=== PATIENT | male | born 1950 | race Caucasian/White ===

== ENCOUNTER 2017-06-17 23:52 | Inpatient (IN) | payer OTHER ==
--- NOTE | 2017-06-18 00:21 | EDM.PDOC ---
ED HPI GENERAL MEDICAL PROBLEM - General Stated Complaint: [facility] Time Seen by Provider: 06/18/17 00:07 Source of Information: Reports: EMS, Family History Limitations: Reports: Altered Mental Status - History of Present Illness INITIAL COMMENTS - FREE TEXT/NARRATIVE: 66-year-old male, [facility] has been living in very unhealthy conditions for the last 3 days. He was unable to walk earlier today but was at least able to communicate with his family and did eat some supper but over the past 4 or 5 hours slowly worsened and now has inability to speak, only partially responsive, more short of breath and somewhat agitated. They're sure he has gotten into alcohol over the past 3 days. A [employer] search was done and he has not been prescribed significant narcotics over the past 6 months. He arrived by ambulance with a face mask oxygen, slightly increased respiratory effort but O2 saturations near 100%. Glucometer check by EMS was over 100. No history was obtainable from the patient. Onset: Gradual (Markedly worse over the past 4 hours) - Related Data Allergies Allergy/AdvReac Type Severity Reaction Status Date / Time Penicillins Allergy Other Verified 06/18/17 00:23 Home Meds: Home Meds Acetaminophen 650 mg PO BID PRN 06/18/17 [History] Albuterol [Proventil Neb Soln] 2.5 mg NEB Q4H PRN neb 06/18/17 [Rx] Albuterol/Ipratropium [DuoNeb 3.0-0.5 MG/3 ML] 3 ml NEB QIDRT neb 06/18/17 [Rx] Ascorbic Acid 500 mg PO BID 06/18/17 [History] Baclofen 10 mg PO BID 06/18/17 [History] Enoxaparin [Lovenox] 40 mg SUBCUT BEDTIME syringe 06/18/17 [Rx] Ferrous Sulfate 325 mg PO BID 06/18/17 [History] Folic Acid 1 mg PO DAILY 06/18/17 [History] Gabapentin [Neurontin] 1,800 mg PO BEDTIME 06/18/17 [History] Gabapentin [Neurontin] 600 mg PO BID 06/18/17 [History] Lactobacillus Acidophilus [Digestive Probiotic] 1 each PO BID 06/18/17 [History] Levofloxacin/Dextrose 5%-Water [Levaquin in D5W 750 MG/150 ML] 750 mg IV Q24H bag 06/18/17 [Rx] Melatonin/Pyridoxine HCl (B6) [Melatonin 3 mg Tablet] 3 mg PO BEDTIME 06/18/17 [ History] Meropenem [Merrem] 1 gm IV Q8H sdv 06/18/17 [Rx] Norepinephrine [Levophed] 4 mg IV TITRATE sdv 06/18/17 [Rx] Pantoprazole Sodium [Protonix] 40 mg PO BIDAC 06/18/17 [History] Pantoprazole [ProTONIX IV] 40 mg IV Q12H vial 06/18/17 [Rx] QUEtiapine Fumarate [Quetiapine Fumarate] 25 mg PO BEDTIME 06/18/17 [History] Simvastatin [Zocor] 80 mg PO BEDTIME 06/18/17 [History] Thiamine Mononitrate [Vitamin B-1] 100 mg PO DAILY 06/18/17 [History] Vancomycin 1.1 gm IV Q12H sdv 06/18/17 [Rx] oxyCODONE 5 mg PO Q4H PRN 06/18/17 [History] ED ROS GENERAL - Review of Systems Review Of Systems: Unable To Obtain ED EXAM, GENERAL - Physical Exam Exam: See Below Exam Limited By: Respiratory Distress General Appearance: Lethargic, Other (Responded to voice and tactile stimulation but unable to speak) Eye Exam: Bilateral Eye: EOMI Head: Atraumatic Respiratory/Chest: Respiratory Distress, Decreased Breath Sounds (Diffuse decreased breath sounds, basilar rhonchi are present bilaterally) Cardiovascular: Regular Rate, Rhythm, Tachycardia GI/Abdominal: Normal Bowel Sounds Extremities: Pedal Edema (1+ symmetric lower extremity edema) Neurological: Inattentive, Confused, Slow to Respond Skin Exam: Warm, Dry Course - Vital Signs Last Recorded V/S: Last Vital Signs Temp 101.6 F H 06/18/17 10:47 Pulse 95 06/18/17 10:47 Resp 15 06/18/17 10:47 BP 114/49 L 06/18/17 10:47 Pulse Ox 95 06/18/17 10:47 - Orders/Labs/Meds Orders: Active Orders 24 hr Category Date Time Status Chest 1V Frontal [CR] Stat Exams 06/18/17 00:06 Taken Chest 1V Frontal [CR] Stat Exams 06/18/17 00:49 Taken Head wo Cont [CT] Stat Exams 06/18/17 00:06 Taken Labs: Laboratory Tests 06/18/17 06/18/17 06/18/17 Range/Units 00:15 00:15 00:30 WBC 11.5 H (4.5-11.0) K/uL RBC 3.50 L (4.30-5.90) M/uL Hgb 9.8 L (12.0-15.0) g/dL Hct 30.8 L (40.0-54.0) % MCV 88 (80-98) fL MCH 28 (27-31) pg MCHC 32 (32-36) % Plt Count 475 H (150-400) K/uL Neut % (Auto) 79 H (36-66) % Lymph % (Auto) 16 L (24-44) % [place] % (Auto) 5 (2-6) % Eos % (Auto) 0 L (2-4) % Baso % (Auto) 0 (0-1) % Sample Site R brachial POC ABG pH 7.15 L* (7.35-7.45) POC ABG pCO2 92.5 H* (35-45) mmHG POC ABG pO2 81 (80-105) mmHg POC ABG HCO3 32.3 H (22.0-26.0) mmol/L POC ABG Total CO2 35 H (23-27) mmol/L POC ABG O2 Sat 91 L (95-98) % POC ABG Base Excess 3 (-2-3) mmol/L O2 Delivery Device Nasal cannula POC O2 Flow Rate 2 Sodium 131 L (140-148) mmol/L Potassium 3.8 (3.6-5.2) mmol/L Chloride 93 L (100-108) mmol/L Carbon Dioxide 33 H (21-32) mmol/L Anion Gap 8.8 (5.0-14.0) mmol/L BUN 8 (7-18) mg/dL Creatinine 0.4 L (0.8-1.3) mg/dL Est Cr Clr Drug Dosing 167.58 mL/min Estimated GFR (MDRD) > 60 (>60) Glucose 111 H (74-106) mg/dL Calcium 7.7 L (8.5-10.1) mg/dL Total Bilirubin 0.3 (0.2-1.0) mg/dL AST 27 (15-37) U/L ALT 14 (12-78) U/L Alkaline Phosphatase 91 (46-116) U/L Ammonia (11-32) mmol/L Troponin I < 0.017 (0.000-0.056) ng/mL Total Protein 6.5 (6.4-8.2) g/dL Albumin 2.4 L (3.4-5.0) g/dL Globulin 4.1 H (2.3-3.5) g/dL Albumin/Globulin Ratio 0.6 L (1.2-2.2) Acetaminophen 0.0 L (10.0-30.0) ug/mL Ethyl Alcohol mg/dL 06/18/17 06/18/17 Range/Units 00:30 00:30 WBC (4.5-11.0) K/uL RBC (4.30-5.90) M/uL Hgb (12.0-15.0) g/dL Hct (40.0-54.0) % MCV (80-98) fL MCH (27-31) pg MCHC (32-36) % Plt Count (150-400) K/uL Neut % (Auto) (36-66) % Lymph % (Auto) (24-44) % [place] % (Auto) (2-6) % Eos % (Auto) (2-4) % Baso % (Auto) (0-1) % Sample Site POC ABG pH (7.35-7.45) POC ABG pCO2 (35-45) mmHG POC ABG pO2 (80-105) mmHg POC ABG HCO3 (22.0-26.0) mmol/L POC ABG Total CO2 (23-27) mmol/L POC ABG O2 Sat (95-98) % POC ABG Base Excess (-2-3) mmol/L O2 Delivery Device POC O2 Flow Rate Sodium (140-148) mmol/L Potassium (3.6-5.2) mmol/L Chloride (100-108) mmol/L Carbon Dioxide (21-32) mmol/L Anion Gap (5.0-14.0) mmol/L BUN (7-18) mg/dL Creatinine (0.8-1.3) mg/dL Est Cr Clr Drug Dosing mL/min Estimated GFR (MDRD) (>60) Glucose (74-106) mg/dL Calcium (8.5-10.1) mg/dL Total Bilirubin (0.2-1.0) mg/dL AST (15-37) U/L ALT (12-78) U/L Alkaline Phosphatase (46-116) U/L Ammonia 21 (11-32) mmol/L Troponin I (0.000-0.056) ng/mL Total Protein (6.4-8.2) g/dL Albumin (3.4-5.0) g/dL Globulin (2.3-3.5) g/dL Albumin/Globulin Ratio (1.2-2.2) Acetaminophen (10.0-30.0) ug/mL Ethyl Alcohol 195 mg/dL Meds: Medications Discontinued Medications Generic Name Dose Route Start Last Admin Trade Name Freq PRN Reason Stop Dose Admin Acetaminophen 650 mg 06/18/17 02:15 Tylenol RECTAL Q4H PRN Mild pain/fever Albuterol 2.5 mg 06/18/17 02:15 Proventil Neb Soln NEB Q4H PRN Shortness Of Breath/wheezing Albuterol/Ipratropium 3 ml 06/18/17 06:00 06/18/17 05:22 Duoneb 3.0-0.5 Mg/3 Ml NEB 3 ml QID AUTUMN Administration Albuterol/Ipratropium 3 ml 06/18/17 11:00 Duoneb 3.0-0.5 Mg/3 Ml NEB QIDRT AUTUMN Enoxaparin Sodium 40 mg 06/18/17 02:15 06/18/17 03:53 Lovenox SUBCUT 40 mg DAILY AUTUMN Administration Enoxaparin Sodium 40 mg 06/18/17 21:00 Lovenox SUBCUT BEDTIME AUTUMN Etomidate 40 mg 06/18/17 00:30 06/18/17 00:40 Amidate IV 06/18/17 00:31 20 mg ONETIME ONE Administration Heparin Sodium (Porcine) Confirm 06/18/17 09:21 06/18/17 10:24 Heparin Lock Flush 100 Units/Ml Administered 06/18/17 09:22 Not Given Dose 1,500 units .ROUTE .STK-MED ONE Heparin Sodium (Porcine) 300 units 06/18/17 09:54 06/18/17 10:15 Heparin Lock Flush 100 Units/Ml FLUSH 300 units ASDIRECTED PRN Administration central line Heparin Sodium (Porcine) 0 units 06/18/17 10:19 06/18/17 11:23 Heparin Lock Flush 100 Units/Ml FLUSH 300 units ASDIRECTED PRN Administration central line Hydromorphone HCl 0.5 mg 06/18/17 02:15 06/18/17 11:59 Dilaudid IVPUSH 0.5 mg Q2H PRN Administration Pain Propofol Confirm 06/18/17 01:08 Diprivan 100 Ml Administered 06/18/17 01:09 Dose 100 mls @ as directed .ROUTE .STK-MED ONE Lactated Ringer's 1,000 mls @ 500 mls/hr 06/18/17 02:15 06/18/17 02:00 Ringers, Lactated IV 06/18/17 05:16 500 mls/hr ASDIRECTED AUTUMN Administration Lactated Ringer's 1,000 mls @ 125 mls/hr 06/18/17 05:15 06/18/17 04:26 Ringers, Lactated IV 125 mls/hr ASDIRECTED AUTUMN Administration Levofloxacin/Dextrose 750 mg/ 150 mls @ 100 mls/hr 06/18/17 02:15 06/18/17 02 :37 Premix IV 100 mls/hr Q24H AUTUMN Administration Meropenem 1 gm/ Sodium 100 mls @ 200 mls/hr 06/18/17 02:15 06/18/17 04:27 Chloride IV 200 mls/hr Q8H AUTUMN Administration Propofol 100 mls @ 2.16 mls/hr 06/18/17 02:15 06/18/17 12:02 Diprivan 100 Ml IV 5.09 mcg/kg/min TITRATE AUTUMN 2.2 mls/hr Administration Protocol 5 MCG/KG/MIN Norepinephrine Bitartrate 4 mg 250 mls @ 7.5 mls/hr 06/18/17 04:45 06/18/17 08:30 / Dextrose/Water IV 5 mcg/min TITRATE AUTUMN 18.75 mls/hr Titration Protocol 2 MCG/MIN Dextrose/Water Confirm 06/18/17 04:41 06/18/17 05:21 Dextrose 5% In Water Administered 06/18/17 04:42 Not Given Dose 250 mls @ as directed .ROUTE .STK-MED ONE Meropenem 1 gm/ Sodium 100 mls @ 200 mls/hr 06/18/17 12:00 06/18/17 12:03 Chloride IV 200 mls/hr Q8H AUTUMN Administration Vancomycin HCl 1.5 gm/ Sodium 250 mls @ 167 mls/hr 06/18/17 08:00 06/18/17 07 :47 Chloride IV 06/18/17 09:29 167 mls/hr ONETIME ONE Administration Vancomycin HCl 1.1 gm/ Sodium 250 mls @ 167 mls/hr 06/18/17 20:00 Chloride IV Q12H AUTUMN Lactated Ringer's 500 mls @ 500 mls/hr 06/18/17 09:00 06/18/17 08:57 Ringers, Lactated IV 06/18/17 09:59 500 mls/hr .BOLUS ONE Administration Heparin Sodium (Porcine) 5,000 501 mls @ 5 mls/hr 06/18/17 09:30 06/18/17 09: 56 units/ Sodium Chloride IV 5 mls/hr ASDIRECTED AUTUMN Administration Magnesium Sulfate 2 gm/ Premix 50 mls @ 25 mls/hr 06/18/17 11:30 06/18/17 11: 22 IV 06/18/17 13:29 25 mls/hr ONETIME ONE Administration Lactated Ringer's 1,000 mls @ 999 mls/hr 06/18/17 11:00 06/18/17 10:52 Ringers, Lactated IV 06/18/17 12:00 999 mls/hr ONETIME ONE Administration Lidocaine HCl 5 ml 06/18/17 10:30 06/18/17 10:52 Xylocaine-Mpf 1% INJECT 06/18/17 10:31 5 ml ONETIME ONE Administration Midazolam HCl 5 mg 06/18/17 01:04 Versed 1 Mg/Ml IVPUSH 06/18/17 01:05 ONETIME ONE Midazolam HCl Confirm 06/18/17 01:06 Versed 1 Mg/Ml Administered 06/18/17 01:07 Dose 5 mg .ROUTE .STK-MED ONE Norepinephrine Bitartrate Confirm 06/18/17 04:40 06/18/17 05:20 Levophed Administered 06/18/17 04:41 Not Given Dose 4 mg .ROUTE .STK-MED ONE Ondansetron HCl 4 mg 06/18/17 02:15 Zofran IV Q4H PRN Nausea/Vomiting Pantoprazole Sodium 40 mg 06/18/17 02:15 06/18/17 02:39 Protonix Iv IV 40 mg Q12H AUTUMN Administration Sodium Chloride 10 ml 06/18/17 02:15 Saline Flush FLUSH ASDIRECTED PRN Keep Vein Open Succinylcholine Chloride 75 mg 06/18/17 00:30 06/18/17 00:40 Quelicin IV 06/18/17 00:31 75 mg ONETIME ONE Administration Succinylcholine Chloride Confirm 06/18/17 00:30 06/18/17 00:53 Quelicin Administered 06/18/17 00:31 Not Given Dose 200 mg .ROUTE .STK-MED ONE Vancomycin HCl 1 gm 06/18/17 03:00 Vancomycin IV .PHARMACY TO DOSE AUTUMN - Re-Assessments/Exams Free Text/Narrative Re-Assessment/Exam: 06/18/17 00:[address] was done which showed no acute findings, portable chest x-ray showed cardiomegaly and some mild vascular congestion. Blood gases confirmed hypercapnia with a CO2 of 92 and pH of 7.15. EtOH was 0.195. I discussed his condition with his family, he has needed intubation several times in the last few years and is a full code so the decision was made to intubate the patient. He was given 75 mg of succinylcholine after 20 mg of etomidate IV, and was intubated on the first attempt with a 7.0 ET tube under guidance with the glidescope. 06/18/17 00:58 Acetaminophen level was 0, hemoglobin 9.8. White count 11,400. 06/18/17 00:59 Troponin was 0. Sodium was 131, the rest of his electrolytes are actually quite reassuring, kidney function was excellent. Patient will be placed on a vent and placed in the ICU under hospitalist service. He will need treatment for acute COPD exacerbation and hypercapnia. 06/18/17 01:01 60 minutes of critical care was provided to the patient. 06/18/17 01:06 Prior to admission the patient started to become mildly agitated so was given 5 mg of IV Versed and orders for propofol drip were placed to initiate persistent sedation so the patient would tolerate mechanical ventilation. Departure - Departure Time of Disposition: 01:15 Disposition: Admitted As Inpatient 68 Clinical Impression: Hypercapnic respiratory failure COPD (chronic obstructive pulmonary disease) Qualifiers: COPD type: COPD with acute exacerbation Qualified Code(s): J44.1 - Chronic obstructive pulmonary disease with (acute) exacerbation - Discharge Information Critical Care Note - Critical Care Note Total Time (mins): 60 - My Orders Last 24 Hours: My Active Orders 06/18/17 00:06 Chest 1V Frontal [CR] Stat Head wo Cont [CT] Stat 06/18/17 00:49 Chest 1V Frontal [CR] Stat - Assessment/Plan Last 24 Hours: My Active Orders 06/18/17 00:06 Chest 1V Frontal [CR] Stat Head wo Cont [CT] Stat 06/18/17 00:49 Chest 1V Frontal [CR] Stat
[2017-06-18] MEDS ORDERED: Etomidate 2 MG/ML 20 ML SDV IV ONE (00:30)
[2017-06-18] MEDS ORDERED: Succinylcholine 200 MG/10 ML MDV IV ONE (00:30)
[2017-06-18] MEDS ORDERED: Succinylcholine 200 MG/10 ML MDV ONE (00:30)
[2017-06-18] MEDS ORDERED: Midazolam 1 MG/ML 5 ML SDV IVPUSH ONE (01:04)
[2017-06-18] MEDS ORDERED: Midazolam 1 MG/ML 5 ML SDV ONE (01:06)
[2017-06-18] MEDS ORDERED: Meropenem 1 GM in Sodium Chloride 0.9% 100 ML IV SCH ×2 (02:15→12:00)
[2017-06-18] MEDS ORDERED: Albuterol 0.083% 2.5 MG/3 ML Neb Soln NEB PRN (02:15)
[2017-06-18] MEDS ORDERED: Levofloxacin/Dextrose 5%-Water 750 MG in Premix Bag 1 BAG IV SCH (02:15)
[2017-06-18] MEDS ORDERED: Enoxaparin 40 MG/0.4 ML Syringe SUBCUT SCH ×2 (02:15→21:00)
[2017-06-18] MEDS ORDERED: Sodium Chloride 0.9% 10 ML Syringe FLUSH PRN (02:15)
[2017-06-18] MEDS ORDERED: HYDROmorphone 0.5 MG/0.5 ML Syringe IVPUSH PRN (02:15)
[2017-06-18] MEDS ORDERED: Lactated Ringers 1,000 ML IV SCH ×2 (02:15→05:15)
[2017-06-18] MEDS ORDERED: Acetaminophen 650 MG Supp RECTAL PRN (02:15)
[2017-06-18] MEDS ORDERED: Ondansetron 4 MG/2 ML SDV IV PRN (02:15)
[2017-06-18] MEDS ORDERED: Pantoprazole 40 MG Vial IV SCH (02:15)
--- NOTE | 2017-06-18 02:29 | PCM.HP ---
H&P History of Present Illness - General Date of Service: 06/18/17 Admit Problem/Dx: Source of Information: Provider, RN Notes Reviewed History Limitations: Reports: Altered Mental Status (Intubated and sedated), Respiratory Distress - History of Present Illness Initial Comments - Free Text/Narative: Mr. Wan is a 66-year-old gentleman who is admitted through the emergency department with acute on chronic hypercapnic respiratory failure requiring intubation and mechanical ventilation. Currently he was just discharged from the [place] hospital 3 days ago, to home. He has a long-standing history of alcohol abuse and apparently has been consuming alcohol over the past 3 days. Initially he did well after discharge but family noted that as the day progressed today he became progressively more lethargic and weak. Ambulance was called and he was brought into the emergency department for further evaluation and management. On arrival in the emergency department oxygen saturations were 100% on a mask, blood gases showed severe CO2 retention with a PCO2 of 93 and a pH of 7.15. He apparently has a past history of COPD and has experienced previous episodes of respiratory failure requiring intubation and mechanical ventilation. Alcohol level was elevated at 195, urine drug screen is pending. Since transfer to the intensive care unit he has been hypotensive with systolic pressures into the low 80s. Because of current intubation and sedation he is unable to provide history concerning recent symptoms or events. Family is no longer present and unable to provide information. We will attempt to obtain records from the [place] to determine reason for his recent hospitalization there. As well as more information concerning his past medical history. - Related Data Allergies/Adverse Reactions: Allergies Allergy/AdvReac Type Severity Reaction Status Date / Time Penicillins Allergy Other Verified 06/18/17 00:23 Home Medications: Home Meds Acetaminophen 650 mg PO BID PRN 06/18/17 [History] Ascorbic Acid 500 mg PO BID 06/18/17 [History] Baclofen 10 mg PO BID 06/18/17 [History] Ferrous Sulfate 325 mg PO BID 06/18/17 [History] Folic Acid 1 mg PO DAILY 06/18/17 [History] Gabapentin [Neurontin] 1,800 mg PO BEDTIME 06/18/17 [History] Gabapentin [Neurontin] 600 mg PO BID 06/18/17 [History] Lactobacillus Acidophilus [Digestive Probiotic] 1 each PO BID 06/18/17 [History] Melatonin/Pyridoxine HCl (B6) [Melatonin 3 mg Tablet] 3 mg PO BEDTIME 06/18/17 [ History] Pantoprazole Sodium [Protonix] 40 mg PO BIDAC 06/18/17 [History] QUEtiapine Fumarate [Quetiapine Fumarate] 25 mg PO BEDTIME 06/18/17 [History] Simvastatin [Zocor] 80 mg PO BEDTIME 06/18/17 [History] Thiamine Mononitrate [Vitamin B-1] 100 mg PO DAILY 06/18/17 [History] oxyCODONE 5 mg PO Q4H PRN 06/18/17 [History] Past Medical History Other HEENT History: Unable to obtain Cardiovascular History: Reports: Other (See Below) Other Cardiovascular History: Unable to obtain Respiratory History: Reports: Other (See Below) Other Respiratory History: Unable to obtain Gastrointestinal History: Reports: Other (See Below) Other Gastrointestinal History: History of C-Diff Genitourinary History: Reports: Other (See Below) Other Genitourinary History: Unable to obtain Musculoskeletal History: Reports: Other (See Below) Other Musculoskeletal History: Unable to obtain Psychiatric History: Reports: Addiction, Other (See Below) Other Psychiatric History: Chronic alchololic Endocrine/Metabolic History: Reports: Other (See Below) Other Endocrine/Metabolic History: Unable to obtain Hematologic History: Reports: Blood Transfusion(s), Other (See Below) Other Hematologic History: Recent 2018 GI Bleed with abdominal surgery Immunologic History: Reports: Other (See Below) Other Immunologic History: Unable to obtain Oncologic (Cancer) History: Reports: Other (See Below) Other Oncologic History: Unable to obtain Dermatologic History: Reports: Other (See Below) Other Dermatologic History: Unable to obtain - Infectious Disease History Infectious Disease History: Reports: Chicken Pox - Past Surgical History GI Surgical History: Reports: Other (See Below) Other GI Surgeries/Procedures: Recent abdominal surgery Male Surgical History: Reports: Circumcision Neurological Surgical History: Reports: Spinal Fusion, Other (See Below) Other Neurological Surgeries/Procedures: Recent 2018 C-2 through C-7 fusion Social & Family History - Family History Family Medical History: Unobtainable - Tobacco Use Smoking Status *Q: Current Every Day Smoker Years of Tobacco use: 50 Packs/Tins Daily: 2 Second Hand Smoke Exposure: Yes - Caffeine Use Caffeine Use: Reports: Coffee - Alcohol Use Days Per Week of Alcohol Use: 7 Number of Drinks Per Day: 6 Total Drinks Per Week: 42 - Recreational Drug Use Recreational Drug Use: No H&P Review of Systems - Review of Systems: Review Of Systems: Unable To Obtain General: Reports: ROS unobtainable (Intubated and sedated) Exam - Exam Exam: See Below - Vital Signs Vital Signs: Last Vital Signs Temp 96.8 F 06/18/17 01:02 Pulse 95 06/18/17 01:02 Resp 10 L 06/18/17 01:02 BP 109/63 06/18/17 01:02 Pulse Ox 100 06/18/17 01:02 Weight: 140 lb - Exam Quality Assessment: Supplemental Oxygen (Ventilator), Urinary Catheter, DVT Prophylaxis General: Sedated HEENT: Conjunctiva Clear, Normal Nasal Septum, Pupils Equal, Pupils Reactive Neck: Supple, Trachea Midline, +2 Carotid Pulse wo Bruit Lungs: Decreased Breath Sounds. No: Rales, Rhonchi, Rub, Wheezing Cardiovascular: Regular Rate, Regular Rhythm, Normal S1, Normal S2. No: Systolic Murmur, Diastolic Murmur GI/Abdominal Exam: Soft, Non-Tender, No Organomegaly, No Distention Back Exam: Normal Inspection, Other (Scars over the lumbar thoracic and cervical spine) Extremities: Non-Tender, Pedal Edema Skin: Warm, Dry, Intact - Patient Data Lab Results Last 24 hrs: Laboratory Results - last 24 hr 06/18/17 06/18/17 06/18/17 Range/Units 00:15 00:15 00:30 WBC 11.5 H (4.5-11.0) K/uL RBC 3.50 L (4.30-5.90) M/uL Hgb 9.8 L (12.0-15.0) g/dL Hct 30.8 L (40.0-54.0) % MCV 88 (80-98) fL MCH 28 (27-31) pg MCHC 32 (32-36) % Plt Count 475 H (150-400) K/uL Neut % (Auto) 79 H (36-66) % Lymph % (Auto) 16 L (24-44) % [place] % (Auto) 5 (2-6) % Eos % (Auto) 0 L (2-4) % Baso % (Auto) 0 (0-1) % Sample Site R brachial POC ABG pH 7.15 L* (7.35-7.45) POC ABG pCO2 92.5 H* (35-45) mmHG POC ABG pO2 81 (80-105) mmHg POC ABG HCO3 32.3 H (22.0-26.0) mmol/L POC ABG Total CO2 35 H (23-27) mmol/L POC ABG O2 Sat 91 L (95-98) % POC ABG Base Excess 3 (-2-3) mmol/L O2 Delivery Device Nasal cannula POC O2 Flow Rate 2 Sodium 131 L (140-148) mmol/L Potassium 3.8 (3.6-5.2) mmol/L Chloride 93 L (100-108) mmol/L Carbon Dioxide 33 H (21-32) mmol/L Anion Gap 8.8 (5.0-14.0) mmol/L BUN 8 (7-18) mg/dL Creatinine 0.4 L (0.8-1.3) mg/dL Est Cr Clr Drug Dosing 167.58 mL/min Estimated GFR (MDRD) > 60 (>60) Glucose 111 H (74-106) mg/dL Calcium 7.7 L (8.5-10.1) mg/dL Total Bilirubin 0.3 (0.2-1.0) mg/dL AST 27 (15-37) U/L ALT 14 (12-78) U/L Alkaline Phosphatase 91 (46-116) U/L Ammonia (11-32) mmol/L Troponin I < 0.017 (0.000-0.056) ng/mL Total Protein 6.5 (6.4-8.2) g/dL Albumin 2.4 L (3.4-5.0) g/dL Globulin 4.1 H (2.3-3.5) g/dL Albumin/Globulin Ratio 0.6 L (1.2-2.2) Acetaminophen 0.0 L (10.0-30.0) ug/mL Ethyl Alcohol mg/dL 06/18/17 06/18/17 Range/Units 00:30 00:30 WBC (4.5-11.0) K/uL RBC (4.30-5.90) M/uL Hgb (12.0-15.0) g/dL Hct (40.0-54.0) % MCV (80-98) fL MCH (27-31) pg MCHC (32-36) % Plt Count (150-400) K/uL Neut % (Auto) (36-66) % Lymph % (Auto) (24-44) % [place] % (Auto) (2-6) % Eos % (Auto) (2-4) % Baso % (Auto) (0-1) % Sample Site POC ABG pH (7.35-7.45) POC ABG pCO2 (35-45) mmHG POC ABG pO2 (80-105) mmHg POC ABG HCO3 (22.0-26.0) mmol/L POC ABG Total CO2 (23-27) mmol/L POC ABG O2 Sat (95-98) % POC ABG Base Excess (-2-3) mmol/L O2 Delivery Device POC O2 Flow Rate Sodium (140-148) mmol/L Potassium (3.6-5.2) mmol/L Chloride (100-108) mmol/L Carbon Dioxide (21-32) mmol/L Anion Gap (5.0-14.0) mmol/L BUN (7-18) mg/dL Creatinine (0.8-1.3) mg/dL Est Cr Clr Drug Dosing mL/min Estimated GFR (MDRD) (>60) Glucose (74-106) mg/dL Calcium (8.5-10.1) mg/dL Total Bilirubin (0.2-1.0) mg/dL AST (15-37) U/L ALT (12-78) U/L Alkaline Phosphatase (46-116) U/L Ammonia 21 (11-32) mmol/L Troponin I (0.000-0.056) ng/mL Total Protein (6.4-8.2) g/dL Albumin (3.4-5.0) g/dL Globulin (2.3-3.5) g/dL Albumin/Globulin Ratio (1.2-2.2) Acetaminophen (10.0-30.0) ug/mL Ethyl Alcohol 195 mg/dL Result Diagrams: 06/18/17 00:15 06/18/17 00:30 *Q Meaningful Use (ADM) - VTE Risk Assess *Q Each Risk Factor Represents 1 Point: Serious lung disease including pneumonia, Abnormal Pulmonary Function (COPD) Total Score 1 Point Risk Factors: 2 Each Risk Factor Represents 2 Points: Age 60 - 74 Years Total Score 2 Point Risk Factors: 2 Each Risk Factor Represents 3 Points: None Total Score 3 Point Risk Factors: 0 Each Risk Factor Represents 5 Points: None Total Score 5 Point Risk Factors: 0 Venous Thromboembolism Risk Factor Score *Q: 4 Problem List Initiated/Reviewed/Updated: Yes Orders Last 24hrs: Active Orders 24 hr Category Date Time Status Patient Status [ADT] Routine ADT 06/18/17 02:15 Active Cardiac Monitoring [RC] .As Directed Care 06/18/17 02:15 Active Communication Order [RC] ASDIRECTED Care 06/18/17 02:18 Active Height and Weight [RC] DAILY Care 06/18/17 02:15 Active Initiate Restraint Protocol [RC] BID Care 06/18/17 02:15 Active Intake and Output [RC] QSHIFT Care 06/18/17 02:15 Active Notify Provider Vital Signs [RC] ASDIRECTED Care 06/18/17 02:15 Active Oxygen Therapy [RC] PRN Care 06/18/17 02:15 Active Peripheral IV Care [RC] . DIRECTED Care 06/18/17 02:15 Active Pulse Oximetry [RC] CONTINUOUS Care 06/18/17 02:15 Active RT Aerosol Therapy [RC] ASDIRECTED Care 06/18/17 02:15 Active RT Ventilator, Adult [RC] ASDIRECTED Care 06/18/17 02:15 Active VTE/DVT Education [RC] Per Unit Routine Care 06/18/17 02:15 Active Vital Signs [RC] Q4H Care 06/18/17 02:15 Active Nothing per Oral Now Diet [DIET] Diet 06/18/17 Breakfast Active Chest 1V Frontal [CR] DAILY Exams 06/18/17 05:00 Ordered Chest 1V Frontal [CR] DAILY Exams 06/19/17 05:00 Ordered Chest 1V Frontal [CR] DAILY Exams 06/20/17 05:00 Ordered Chest 1V Frontal [CR] DAILY Exams 06/21/17 05:00 Ordered Chest 1V Frontal [CR] DAILY Exams 06/22/17 05:00 Ordered Chest 1V Frontal [CR] DAILY Exams 06/23/17 05:00 Ordered Chest 1V Frontal [CR] Stat Exams 06/18/17 00:06 Taken Chest 1V Frontal [CR] Stat Exams 06/18/17 00:49 Taken Head wo Cont [CT] Stat Exams 06/18/17 00:06 Taken BASIC METABOLIC PANEL,BMP [CHEM] AM Lab 06/18/17 05:11 Ordered BLOOD GAS ARTERIAL [BG] Stat Lab 06/18/17 02:15 Ordered BLOOD GAS ARTERIAL [BG] Stat Lab 06/18/17 07:00 Ordered CBC WITH AUTO DIFF [HEME] AM Lab 06/18/17 05:11 Ordered CLOSTRIDIUM DIFFICILE BY PCR [RM] Stat Lab 06/18/17 02:15 Ordered CULTURE BLOOD [BC] Stat Lab 06/18/17 02:15 Ordered CULTURE BLOOD [BC] Stat Lab 06/18/17 02:15 Ordered CULTURE RESPIRATORY + SMEAR [RM] Stat Lab 06/18/17 02:15 Ordered CULTURE URINE [RM] Stat Lab 06/18/17 02:15 Ordered DRUG SCREEN, URINE [URCHEM] Stat Lab 06/18/17 02:15 Ordered MAGNESIUM [CHEM] AM Lab 06/18/17 05:11 Ordered TROPONIN I [CHEM] AM Lab 06/18/17 05:11 Ordered UA W/MICROSCOPIC [URIN] Stat Lab 06/18/17 02:15 Ordered Acetaminophen [Tylenol] Med 06/18/17 02:15 Ordered 650 mg RECTAL Q4H PRN Albuterol [Proventil Neb Soln] Med 06/18/17 02:15 Ordered 2.5 mg NEB Q4H PRN Albuterol/Ipratropium [DuoNeb 3.0-0.5 MG/3 ML] Med 06/18/17 06:00 Ordered 3 ml NEB QID Enoxaparin [Lovenox] Med 06/18/17 02:15 Ordered 40 mg SUBCUT DAILY HYDROmorphone [Dilaudid] Med 06/18/17 02:15 Ordered 0.5 mg IVPUSH Q2H PRN Lactated Ringers @ 125 MLS/HR(1000ml) Med 06/18/17 05:15 Ordered Lactated Ringers [Ringers, Lactated] 1,000 ml IV ASDIRECTED Lactated Ringers [Ringers, Lactated] 1,000 ml Med 06/18/17 02:15 Ordered IV ASDIRECTED Levofloxacin/Dextrose 5%-Water [Levaquin in D5W 750 MG/ Med 06/18/17 02:15 Ordered 150 ML] 750 mg Premix Bag 1 bag IV Q24H Meropenem [Merrem] 1 gm Med 06/18/17 02:15 Ordered Sodium Chloride 0.9% [Normal Saline] 100 ml IV Q8H Ondansetron [Zofran] Med 06/18/17 02:15 Ordered 4 mg IV Q4H PRN Pantoprazole [ProTONIX IV] Med 06/18/17 02:15 Ordered 40 mg IV Q12H Propofol Drip @ 5 MCG/KG/MIN(100ml) Med 06/18/17 02:15 Ordered Propofol [Diprivan 100 ML] 100 ml IV TITRATE Sodium Chloride 0.9% [Saline Flush] Med 06/18/17 02:15 Ordered 10 ml FLUSH ASDIRECTED PRN Vancomycin Med 06/18/17 03:00 Ordered 1 gm IV .PHARMACY TO DOSE Blood Culture x2 Reflex Set [OM.PC] Stat Ot 06/18/17 02:15 Ordered Desired Level of Sedation (RASS) [AST] Click to Edit Ot 06/18/17 02:15 Ordered Peripheral IV Insertion Adult [OM.PC] Routine Ot 06/18/17 02:15 Ordered Restraint Initiate Non-VIOL/Non-SD [OM.PC] Urgent Ot 06/18/17 02:15 Ordered Restraint Monitoring Non-VIOL/Non-SD [OM.PC] Daily Ot 06/18/17 02:15 Ordered Restraint Monitoring Non-VIOL/Non-SD [OM.PC] Daily Ot 06/19/17 02:15 Ordered Resuscitation Status Routine Resus Stat 06/18/17 01:56 Ordered Medication Orders Acetaminophen (Tylenol) 650 mg RECTAL Q4H PRN PRN Reason: Mild pain/fever Albuterol (Proventil Neb Soln) 2.5 mg NEB Q4H PRN PRN Reason: Shortness Of Breath/wheezing Albuterol/Ipratropium (Duoneb 3.0-0.5 Mg/3 Ml) 3 ml NEB QID AUTUMN Enoxaparin Sodium (Lovenox) 40 mg SUBCUT DAILY AUTUMN Hydromorphone HCl (Dilaudid) 0.5 mg IVPUSH Q2H PRN PRN Reason: Pain Lactated Ringer's (Ringers, Lactated) 1,000 mls @ 500 mls/hr IV ASDIRECTED AUTUMN Stop: 06/18/17 05:16 Lactated Ringer's (Ringers, Lactated) 1,000 mls @ 125 mls/hr IV ASDIRECTED AUTUMN Levofloxacin/Dextrose 750 mg/ (Premix) 150 mls @ 100 mls/hr IV Q24H AUTUMN Meropenem 1 gm/ Sodium (Chloride) 100 mls @ 200 mls/hr IV Q8H AUTUMN Propofol (Diprivan 100 Ml) 100 mls @ 1.905 mls/hr IV TITRATE AUTUMN; Protocol Ondansetron HCl (Zofran) 4 mg IV Q4H PRN PRN Reason: Nausea/Vomiting Pantoprazole Sodium (Protonix Iv) 40 mg IV Q12H AUTUMN Sodium Chloride (Saline Flush) 10 ml FLUSH ASDIRECTED PRN PRN Reason: Keep Vein Open Vancomycin HCl (Vancomycin) 1 gm IV .PHARMACY TO DOSE AUTUMN Assessment/Plan Comment:: ASSESSMENT AND PLAN ACUTE ON CHRONIC HYPERCAPNIC RESPIRATORY FAILURE-history of underlying COPD, no evidence of obvious infiltrate identified on chest x-ray. Possible component of pulmonary edema. Possibly related to alcohol use, possible narcotic use, urine drug screen pending -Urine drug screen -Follow-up chest x-ray in a.m. after hydration -Arterial blood gases now and in a.m. -Daily chest x-ray while intubated -Continue current ventilator settings, pending blood gases -Blood and sputum and urine cultures pending -IV vancomycin, meropenem, and levofloxacin pending culture results -Obtain records from the [place] hospital concerning recent hospitalization and past medical history HYPOTENSION-noted after intubation, possible medication effect versus developing sepsis secondary to infection. No evidence of cardiac involvement, EKG shows no significant ST segment changes and initial troponin level is within normal range -Serial troponin level -Aggressive IV fluid replacement per sepsis protocol -Antibiotics as above, pending culture results ALCOHOL INTOXICATION-by history is only been using online marketing strategist over the past 3 days , not likely to experience alcohol withdrawal MAINTENANCE ISSUES -DVT prophylaxis;Lovenox 40 mg subcutaneous daily -GI prophylaxis;Protonix 40 mg IV every 12 hours -Hines catheter;To monitor urine output -Nutrition;Nothing by mouth -Nicotine dependence;Not required CODE STATUS-FULL CODE ADMISSION STATUS-patient will be admitted to inpatient status, expect at least a 2 night hospital stay for evaluation and management of problems as outlined above. At the time of this admission I do not reasonably expected evaluation and management of this problem will require more than a 96 hour hospital stay. DISPOSITION-anticipate discharge to home after the hospital stay. PRIMARY CARE PROVIDER-[facility]
[2017-06-18] MEDS ORDERED: Vancomycin 1 GM SDV IV SCH (03:00)
[2017-06-18] MEDS ORDERED: Norepinephrine 4 MG/4 ML SDV ONE (04:40)
[2017-06-18] MEDS ORDERED: Dextrose 5% in Water 250 ML ONE (04:41)
[2017-06-18] MEDS ORDERED: Norepinephrine 4 MG in Dextrose 5% in Water 246 ML IV SCH ×2 (04:45)
[2017-06-18] MEDS ORDERED: Iopamidol 612 MG/ML 150 ML Bottle IV PRN (05:18)
[2017-06-18] MEDS ORDERED: Albuterol/Ipratropium 3.0-0.5 MG/3 ML Neb Soln NEB SCH ×2 (06:00→11:00)
[2017-06-18] MEDS ORDERED: Lactated Ringers 500 ML IV ONE ×2 (09:00→10:30)
[2017-06-18] MEDS ORDERED: Heparin Sodium 5,000 UNITS in Sodium Chloride 0.9% 500 ML IV SCH (09:30)
[2017-06-18] MEDS ORDERED: Lidocaine 1% 20 ML MDV INJECT ONE (09:53)
--- NOTE | 2017-06-18 10:22 | OR ---
DATE OF PROCEDURE: 06/18/2017 PROCEDURE PERFORMED: Left subclavian vein central line placement. COMPLICATIONS: None. EARTH SCIENCE FACULTY MEMBER: None. ANESTHESIA: MAC. RISKS: Due to the emergency nature of this procedure, the patient was unable to consent with respect to this. However, standard risks were applied such as infection, bleeding, and pneumothorax. At this time, the benefits greatly outweigh the risks of this emergent procedure. Therefore, it was deemed appropriate for the patient to immediately proceed. PROCEDURE IN DETAIL: The patient was placed in supine position. The left chest was prepped and draped. The surgeon wore gown, gloves, and masks. This was then prepped and draped in standard fashion using the . The left subclavian vein was accessed on the first pass. Immediately a dark blood was noted. A 35,000th wire was then threaded into the left subclavian vein. This had already been anesthetized with lidocaine 1% from the kit. The dilator was then used. The subclavian line was then introduced and the wire was removed. This was then sutured into place x2. The dressings were applied. The patient tolerated the procedure well. PREOPERATIVE DIAGNOSIS: Hypotension. POSTOPERATIVE DIAGNOSIS: Hypotension. Gino Huff MD /[id number]
--- NOTE | 2017-06-18 10:30 | ANES ---
DATE OF SERVICE: 06/18/2017 INDICATION: Lupe is a 66-year-old male, patient of Dr. Luisito Calle, #[id number]. Mr. Wan is in our intensive care unit and was admitted through the emergency room last night in acute respiratory failure. I was requested today to assess the patient for A-line placement. DESCRIPTION OF PROCEDURE: I attempted right radial arterial access after a sterile drape and prep. I was able to localize the right radius. I cannulated with a 20-gauge arterial catheter but was unable to thread the catheter. I aborted at that point, repositioned, and localized the right ulnar artery. I was able to cannulate and thread the catheter. Excellent blood flow. The catheter was then secured with stitch and Tegaderm and had excellent waveform, reported off to the nurse taking care of the patient. The patient tolerated the procedure quite well. Luisito Camacho CRNA /[id number]
--- NOTE | 2017-06-18 10:56 | PCM.DCSUM1 ---
Discharge Summary - Hospital Course Brief History: This patient is a 66-year-old gentleman who was admitted through the emergency department with weakness and lethargy secondary to hypercapnic respiratory failure and septic shock. - Discharge Data Discharge Date: 06/18/17 Discharge Disposition: DC/Tfer to Acute Hospital 02 Condition: Serious - Discharge Diagnosis/Problem(s) (1) Hypercapnic respiratory failure SNOMED Code(s): 962784642 ICD Code: J96.92 - RESPIRATORY FAILURE, UNSPECIFIED WITH HYPERCAPNIA Status : Acute Current Visit: Yes (2) Septic shock SNOMED Code(s): 48228318 ICD Code: A41.9 - SEPSIS, UNSPECIFIED ORGANISM; R65.21 - SEVERE SEPSIS WITH SEPTIC SHOCK Status: Acute Current Visit: Yes (3) COPD (chronic obstructive pulmonary disease) SNOMED Code(s): 95183109 ICD Code: J44.9 - CHRONIC OBSTRUCTIVE PULMONARY DISEASE, UNSPECIFIED Status : Acute Current Visit: Yes - Patient Summary/Data Hospital Course: Mr. Wan is a 66-year-old gentleman who was admitted through the emergency department with acute on chronic hypercapnic respiratory failure requiring intubation and mechanical ventilation. He was just discharged from the [facility] 3 days ago. He initially had been hospitalized at [facility] in [facility] with an upper GI bleed. This was a severe bleed requiring prolonged hospitalization and transfusion of 13 units of red blood cells. Initially attempt was made at thrombosis of the bleeding artery which was apparently unsuccessful and he required surgery with oversewing of the ulcer. During hospitalization he experienced 2 episodes of respiratory failure requiring intubation and mechanical ventilation. He was transferred from [place] to the [facility] in [place] for rehabilitation. He also has a long- standing history of spinal disease, he had apparently developed severe cervical spine disease with tetraplegia. Cervical spine surgery was performed last fall at the OR in [place], he was hospitalized for prolonged rehabilitation and functional status improved significantly. He has a long-standing history of alcohol abuse and apparently has been consuming alcohol over the past 3 days. Initially he did well after discharge but family noted on the day of admission that he became progressively more lethargic and weak. Ambulance was called and he was brought into the emergency department for further evaluation and management. On arrival in the emergency department oxygen saturations were 100% on a mask, blood gases showed severe CO2 retention with a PCO2 of 93 and a pH of 7.15. He apparently has a past history of COPD and has experienced previous episodes of respiratory failure requiring intubation and mechanical ventilation. Alcohol level was elevated at 195, urine drug screen shows only presence of oxycodone, which he received on discharge from the OR. After transfer to the intensive care unit became hypotensive with systolic pressures into the low 80s. There was no significant temperature elevation at that time, white blood cell count at the time of admission was only modestly elevated 11,300. Was felt likely that he was developing sepsis, he was given aggressive IV fluid replacement per sepsis protocol. Blood urine and sputum cultures were obtained and he was started on broad-spectrum IV antibiotic therapy with vancomycin, meropenem, and levofloxacin. Despite aggressive IV fluid replacement pressures remained low and he was started on IV norepinephrine. This did result in good improvement of pressures and at the time of transfer he had a mean arterial pressure of 70. Left subclavian central line was placed by Dr. Huff and an arterial line was also started. Urine output remained very good despite episodes of hypotension. He ventilated easily with reversal of his severe hypocapnia. Because of multiple medical problems and severe acute illness he will be transferred to [facility] in [facility] via helicopter. Transfer of care has been accepted by Dr. Vivas. - Patient Instructions Diet: NPO Activity: Bedrest Other/Special Instructions: Patient will be transfered to [facility], in [facility] via helicopter - Discharge Plan Home Medications: Home Meds Acetaminophen 650 mg PO BID PRN 06/18/17 [History] Albuterol [Proventil Neb Soln] 2.5 mg NEB Q4H PRN [facility] 06/18/17 [Rx] Albuterol/Ipratropium [DuoNeb 3.0-0.5 MG/3 ML] 3 ml NEB QIDRT [facility] 06/18/17 [Rx] Ascorbic Acid 500 mg PO BID 06/18/17 [History] Baclofen 10 mg PO BID 06/18/17 [History] Enoxaparin [Lovenox] 40 mg SUBCUT BEDTIME syringe 06/18/17 [Rx] Ferrous Sulfate 325 mg PO BID 06/18/17 [History] Folic Acid 1 mg PO DAILY 06/18/17 [History] Gabapentin [Neurontin] 1,800 mg PO BEDTIME 06/18/17 [History] Gabapentin [Neurontin] 600 mg PO BID 06/18/17 [History] Lactobacillus Acidophilus [Digestive Probiotic] 1 each PO BID 06/18/17 [History] Levofloxacin/Dextrose 5%-Water [Levaquin in D5W 750 MG/150 ML] 750 mg IV Q24H bag 06/18/17 [Rx] Melatonin/Pyridoxine HCl (B6) [Melatonin 3 mg Tablet] 3 mg PO BEDTIME 06/18/17 [ History] Meropenem [Merrem] 1 gm IV Q8H sdv 06/18/17 [Rx] Norepinephrine [Levophed] 4 mg IV TITRATE sdv 06/18/17 [Rx] Pantoprazole Sodium [Protonix] 40 mg PO BIDAC 06/18/17 [History] Pantoprazole [ProTONIX IV] 40 mg IV Q12H vial 06/18/17 [Rx] QUEtiapine Fumarate [Quetiapine Fumarate] 25 mg PO BEDTIME 06/18/17 [History] Simvastatin [Zocor] 80 mg PO BEDTIME 06/18/17 [History] Thiamine Mononitrate [Vitamin B-1] 100 mg PO DAILY 06/18/17 [History] Vancomycin 1.1 gm IV Q12H sdv 06/18/17 [Rx] oxyCODONE 5 mg PO Q4H PRN 06/18/17 [History] Referrals: Vikas Millan PA [Primary Care Provider] - - Discharge Summary/Plan Comment DC Time >30 min.: Yes (60 min.) - Patient Data Vitals - Most Recent: Last Vital Signs Temp 101.6 F H 06/18/17 10:47 Pulse 95 06/18/17 10:47 Resp 15 06/18/17 10:47 BP 114/49 L 06/18/17 10:47 Pulse Ox 95 06/18/17 10:47 Weight - Most Recent: 158 lb 11.725 oz I&O - Last 24 hours: Intake & Output 06/17/17 06/18/17 06/18/17 22:59 06:59 14:59 Intake Total 1633 1194 Output Total 200 2870 Balance 1433 -1676 Lab Results - Last 24 hrs: Laboratory Results - last 24 hr 06/18/17 06/18/17 06/18/17 Range/Units 00:15 00:15 00:30 WBC 11.5 H (4.5-11.0) K/uL RBC 3.50 L (4.30-5.90) M/uL Hgb 9.8 L (12.0-15.0) g/dL Hct 30.8 L (40.0-54.0) % MCV 88 (80-98) fL MCH 28 (27-31) pg MCHC 32 (32-36) % Plt Count 475 H (150-400) K/uL Neut % (Auto) 79 H (36-66) % Lymph % (Auto) 16 L (24-44) % [place] % (Auto) 5 (2-6) % Eos % (Auto) 0 L (2-4) % Baso % (Auto) 0 (0-1) % Sample Site R brachial Puncture Site POC ABG pH 7.15 L* (7.35-7.45) ABG pH (7.350-7.450) POC ABG pCO2 92.5 H* (35-45) mmHG ABG pCO2 (35.0-42.0) mmHg POC ABG pO2 81 (80-105) mmHg ABG pO2 (75.0-100.0) mmHg POC ABG HCO3 32.3 H (22.0-26.0) mmol/L ABG HCO3 (22.0-26.0) mmol/L POC ABG Total CO2 35 H (23-27) mmol/L ABG Total CO2 (23.0-27.0) mmol/L POC ABG O2 Sat 91 L (95-98) % ABG O2 Saturation (95.0-98.0) % ABG O2 Content (15.0-23.0) %vol POC ABG Base Excess 3 (-2-3) mmol/L ABG Base Excess mm/L ABG Hemoglobin (13.5-18.0) g/dL ABG Oxyhemoglobin % ABG Carboxyhemoglobin (0.0-1.6) % ABG Methemoglobin % Gregg Test O2 Delivery Device Nasal cannula Oxygen Flow Rate L POC O2 Flow Rate 2 Sodium 131 L (140-148) mmol/L Potassium 3.8 (3.6-5.2) mmol/L Chloride 93 L (100-108) mmol/L Carbon Dioxide 33 H (21-32) mmol/L Anion Gap 8.8 (5.0-14.0) mmol/L BUN 8 (7-18) mg/dL Creatinine 0.4 L (0.8-1.3) mg/dL Est Cr Clr Drug Dosing 167.58 mL/min Estimated GFR (MDRD) > 60 (>60) Glucose 111 H (74-106) mg/dL Lactic Acid (0.4-2.0) mmol/L Calcium 7.7 L (8.5-10.1) mg/dL Magnesium (1.8-2.4) mg/dL Total Bilirubin 0.3 (0.2-1.0) mg/dL AST 27 (15-37) U/L ALT 14 (12-78) U/L Alkaline Phosphatase 91 (46-116) U/L Ammonia (11-32) mmol/L Troponin I < 0.017 (0.000-0.056) ng/mL Total Protein 6.5 (6.4-8.2) g/dL Albumin 2.4 L (3.4-5.0) g/dL Globulin 4.1 H (2.3-3.5) g/dL Albumin/Globulin Ratio 0.6 L (1.2-2.2) Urine Color Urine Appearance Urine pH (4.5-8.0) Ur Specific [place] (1.008-1.030) Urine Protein (NEGATIVE) mg/dL Urine Glucose (UA) (NEGATIVE) mg/dL Urine Ketones (NEGATIVE) mg/dL Urine Occult Blood (NEGATIVE) Urine Nitrite (NEGAITVE) Urine Bilirubin (NEGATIVE) Urine Urobilinogen (NORMAL) mg/dL Ur Leukocyte Esterase (NEGATIVE) Urine RBC (0-5) Urine WBC (0-5) Ur Epithelial Cells Amorphous Sediment Urine Bacteria Urine Mucus Urine Opiates Screen (NEGATIVE) Ur Oxycodone Screen (NEGATIVE) Urine Methadone Screen (NEGATIVE) Ur Propoxyphene Screen (NEGATIVE) Acetaminophen 0.0 L (10.0-30.0) ug/mL Ur Barbiturates Screen (NEGATIVE) Ur Tricyclics Screen (NEGATIVE) Ur Phencyclidine Scrn (NEGATIVE) Ur Amphetamine Screen (NEGATIVE) U Methamphetamines Scrn (NEGATIVE) Urine MDMA Screen (NEGATIVE) U Benzodiazepines Scrn (NEGATIVE) U Cocaine Metab Screen (NEGATIVE) U Marijuana (THC) Screen (NEGATIVE) Ethyl Alcohol mg/dL 06/18/17 06/18/17 06/18/17 Range/Units 00:30 00:30 02:15 WBC (4.5-11.0) K/uL RBC (4.30-5.90) M/uL Hgb (12.0-15.0) g/dL Hct (40.0-54.0) % MCV (80-98) fL MCH (27-31) pg MCHC (32-36) % Plt Count (150-400) K/uL Neut % (Auto) (36-66) % Lymph % (Auto) (24-44) % [place] % (Auto) (2-6) % Eos % (Auto) (2-4) % Baso % (Auto) (0-1) % Sample Site Puncture Site POC ABG pH (7.35-7.45) ABG pH (7.350-7.450) POC ABG pCO2 (35-45) mmHG ABG pCO2 (35.0-42.0) mmHg POC ABG pO2 (80-105) mmHg ABG pO2 (75.0-100.0) mmHg POC ABG HCO3 (22.0-26.0) mmol/L ABG HCO3 (22.0-26.0) mmol/L POC ABG Total CO2 (23-27) mmol/L ABG Total CO2 (23.0-27.0) mmol/L POC ABG O2 Sat (95-98) % ABG O2 Saturation (95.0-98.0) % ABG O2 Content (15.0-23.0) %vol POC ABG Base Excess (-2-3) mmol/L ABG Base Excess mm/L ABG Hemoglobin (13.5-18.0) g/dL ABG Oxyhemoglobin % ABG Carboxyhemoglobin (0.0-1.6) % ABG Methemoglobin % Gregg Test O2 Delivery Device Oxygen Flow Rate L POC O2 Flow Rate Sodium (140-148) mmol/L Potassium (3.6-5.2) mmol/L Chloride (100-108) mmol/L Carbon Dioxide (21-32) mmol/L Anion Gap (5.0-14.0) mmol/L BUN (7-18) mg/dL Creatinine (0.8-1.3) mg/dL Est Cr Clr Drug Dosing mL/min Estimated GFR (MDRD) (>60) Glucose (74-106) mg/dL Lactic Acid (0.4-2.0) mmol/L Calcium (8.5-10.1) mg/dL Magnesium (1.8-2.4) mg/dL Total Bilirubin (0.2-1.0) mg/dL AST (15-37) U/L ALT (12-78) U/L Alkaline Phosphatase (46-116) U/L Ammonia 21 (11-32) mmol/L Troponin I (0.000-0.056) ng/mL Total Protein (6.4-8.2) g/dL Albumin (3.4-5.0) g/dL Globulin (2.3-3.5) g/dL Albumin/Globulin Ratio (1.2-2.2) Urine Color Yellow Urine Appearance Clear Urine pH 5.0 (4.5-8.0) Ur Specific [place] 1.025 (1.008-1.030) Urine Protein Negative (NEGATIVE) mg/dL Urine Glucose (UA) Normal (NEGATIVE) mg/dL Urine Ketones Negative (NEGATIVE) mg/dL Urine Occult Blood Negative (NEGATIVE) Urine Nitrite Negative (NEGAITVE) Urine Bilirubin Negative (NEGATIVE) Urine Urobilinogen Normal (NORMAL) mg/dL Ur Leukocyte Esterase Negative (NEGATIVE) Urine RBC 0-5 (0-5) Urine WBC 0-5 (0-5) Ur Epithelial Cells Few Amorphous Sediment Not seen Urine Bacteria Few Urine Mucus Not seen Urine Opiates Screen (NEGATIVE) Ur Oxycodone Screen (NEGATIVE) Urine Methadone Screen (NEGATIVE) Ur Propoxyphene Screen (NEGATIVE) Acetaminophen (10.0-30.0) ug/mL Ur Barbiturates Screen (NEGATIVE) Ur Tricyclics Screen (NEGATIVE) Ur Phencyclidine Scrn (NEGATIVE) Ur Amphetamine Screen (NEGATIVE) U Methamphetamines Scrn (NEGATIVE) Urine MDMA Screen (NEGATIVE) U Benzodiazepines Scrn (NEGATIVE) U Cocaine Metab Screen (NEGATIVE) U Marijuana (THC) Screen (NEGATIVE) Ethyl Alcohol 195 mg/dL 06/18/17 06/18/17 06/18/17 Range/Units 02:15 02:15 06:56 WBC (4.5-11.0) K/uL RBC (4.30-5.90) M/uL Hgb (12.0-15.0) g/dL Hct (40.0-54.0) % MCV (80-98) fL MCH (27-31) pg MCHC (32-36) % Plt Count (150-400) K/uL Neut % (Auto) (36-66) % Lymph % (Auto) (24-44) % [place] % (Auto) (2-6) % Eos % (Auto) (2-4) % Baso % (Auto) (0-1) % Sample Site Puncture Site R radial Rt brachial POC ABG pH (7.35-7.45) ABG pH 7.285 L 7.351 (7.350-7.450) POC ABG pCO2 (35-45) mmHG ABG pCO2 62.5 H 48.2 H (35.0-42.0) mmHg POC ABG pO2 (80-105) mmHg ABG pO2 59.9 L 147.0 H (75.0-100.0) mmHg POC ABG HCO3 (22.0-26.0) mmol/L ABG HCO3 28.7 H 26.0 (22.0-26.0) mmol/L POC ABG Total CO2 (23-27) mmol/L ABG Total CO2 27.9 H 24.8 (23.0-27.0) mmol/L POC ABG O2 Sat (95-98) % ABG O2 Saturation 86.9 L 99.2 H (95.0-98.0) % ABG O2 Content 10.2 L 11.6 L (15.0-23.0) %vol POC ABG Base Excess (-2-3) mmol/L ABG Base Excess 1.9 0.7 mm/L ABG Hemoglobin 8.7 L 8.5 L (13.5-18.0) g/dL ABG Oxyhemoglobin 83.7 94.3 % ABG Carboxyhemoglobin 2.9 H 4.1 H (0.0-1.6) % ABG Methemoglobin 0.8 0.8 % Gregg Test Ok N/a O2 Delivery Device Ventilator Ventilator Oxygen Flow Rate L POC O2 Flow Rate Sodium (140-148) mmol/L Potassium (3.6-5.2) mmol/L Chloride (100-108) mmol/L Carbon Dioxide (21-32) mmol/L Anion Gap (5.0-14.0) mmol/L BUN (7-18) mg/dL Creatinine (0.8-1.3) mg/dL Est Cr Clr Drug Dosing mL/min Estimated GFR (MDRD) (>60) Glucose (74-106) mg/dL Lactic Acid (0.4-2.0) mmol/L Calcium (8.5-10.1) mg/dL Magnesium (1.8-2.4) mg/dL Total Bilirubin (0.2-1.0) mg/dL AST (15-37) U/L ALT (12-78) U/L Alkaline Phosphatase (46-116) U/L Ammonia (11-32) mmol/L Troponin I (0.000-0.056) ng/mL Total Protein (6.4-8.2) g/dL Albumin (3.4-5.0) g/dL Globulin (2.3-3.5) g/dL Albumin/Globulin Ratio (1.2-2.2) Urine Color Urine Appearance Urine pH (4.5-8.0) Ur Specific [place] (1.008-1.030) Urine Protein (NEGATIVE) mg/dL Urine Glucose (UA) (NEGATIVE) mg/dL Urine Ketones (NEGATIVE) mg/dL Urine Occult Blood (NEGATIVE) Urine Nitrite (NEGAITVE) Urine Bilirubin (NEGATIVE) Urine Urobilinogen (NORMAL) mg/dL Ur Leukocyte Esterase (NEGATIVE) Urine RBC (0-5) Urine WBC (0-5) Ur Epithelial Cells Amorphous Sediment Urine Bacteria Urine Mucus Urine Opiates Screen Negative (NEGATIVE) Ur Oxycodone Screen Positive H (NEGATIVE) Urine Methadone Screen Negative (NEGATIVE) Ur Propoxyphene Screen Negative (NEGATIVE) Acetaminophen (10.0-30.0) ug/mL Ur Barbiturates Screen Negative (NEGATIVE) Ur Tricyclics Screen Negative (NEGATIVE) Ur Phencyclidine Scrn Negative (NEGATIVE) Ur Amphetamine Screen Negative (NEGATIVE) U Methamphetamines Scrn Negative (NEGATIVE) Urine MDMA Screen Negative (NEGATIVE) U Benzodiazepines Scrn Negative (NEGATIVE) U Cocaine Metab Screen Negative (NEGATIVE) U Marijuana (THC) Screen Negative (NEGATIVE) Ethyl Alcohol mg/dL 06/18/17 06/18/17 06/18/17 Range/Units 06:56 06:56 10:26 WBC 8.6 (4.5-11.0) K/uL RBC 3.02 L (4.30-5.90) M/uL Hgb 8.3 L (12.0-15.0) g/dL Hct 26.7 L (40.0-54.0) % MCV 88 (80-98) fL MCH 28 (27-31) pg MCHC 31 L (32-36) % Plt Count 419 H (150-400) K/uL Neut % (Auto) 73 H (36-66) % Lymph % (Auto) 17 L (24-44) % [place] % (Auto) 9 H (2-6) % Eos % (Auto) 0 L (2-4) % Baso % (Auto) 0 (0-1) % Sample Site Puncture Site POC ABG pH (7.35-7.45) ABG pH (7.350-7.450) POC ABG pCO2 (35-45) mmHG ABG pCO2 (35.0-42.0) mmHg POC ABG pO2 (80-105) mmHg ABG pO2 (75.0-100.0) mmHg POC ABG HCO3 (22.0-26.0) mmol/L ABG HCO3 (22.0-26.0) mmol/L POC ABG Total CO2 (23-27) mmol/L ABG Total CO2 (23.0-27.0) mmol/L POC ABG O2 Sat (95-98) % ABG O2 Saturation (95.0-98.0) % ABG O2 Content (15.0-23.0) %vol POC ABG Base Excess (-2-3) mmol/L ABG Base Excess mm/L ABG Hemoglobin (13.5-18.0) g/dL ABG Oxyhemoglobin % ABG Carboxyhemoglobin (0.0-1.6) % ABG Methemoglobin % Gregg Test O2 Delivery Device Oxygen Flow Rate L POC O2 Flow Rate Sodium 135 L (140-148) mmol/L Potassium 3.9 (3.6-5.2) mmol/L Chloride 100 (100-108) mmol/L Carbon Dioxide 29 (21-32) mmol/L Anion Gap 9.9 (5.0-14.0) mmol/L BUN 6 L (7-18) mg/dL Creatinine 0.5 L (0.8-1.3) mg/dL Est Cr Clr Drug Dosing 152.00 mL/min Estimated GFR (MDRD) > 60 (>60) Glucose 76 (74-106) mg/dL Lactic Acid 1.8 (0.4-2.0) mmol/L Calcium 8.0 L (8.5-10.1) mg/dL Magnesium 1.7 L (1.8-2.4) mg/dL Total Bilirubin (0.2-1.0) mg/dL AST (15-37) U/L ALT (12-78) U/L Alkaline Phosphatase (46-116) U/L Ammonia (11-32) mmol/L Troponin I 0.027 (0.000-0.056) ng/mL Total Protein (6.4-8.2) g/dL Albumin (3.4-5.0) g/dL Globulin (2.3-3.5) g/dL Albumin/Globulin Ratio (1.2-2.2) Urine Color Urine Appearance Urine pH (4.5-8.0) Ur Specific [place] (1.008-1.030) Urine Protein (NEGATIVE) mg/dL Urine Glucose (UA) (NEGATIVE) mg/dL Urine Ketones (NEGATIVE) mg/dL Urine Occult Blood (NEGATIVE) Urine Nitrite (NEGAITVE) Urine Bilirubin (NEGATIVE) Urine Urobilinogen (NORMAL) mg/dL Ur Leukocyte Esterase (NEGATIVE) Urine RBC (0-5) Urine WBC (0-5) Ur Epithelial Cells Amorphous Sediment Urine Bacteria Urine Mucus Urine Opiates Screen (NEGATIVE) Ur Oxycodone Screen (NEGATIVE) Urine Methadone Screen (NEGATIVE) Ur Propoxyphene Screen (NEGATIVE) Acetaminophen (10.0-30.0) ug/mL Ur Barbiturates Screen (NEGATIVE) Ur Tricyclics Screen (NEGATIVE) Ur Phencyclidine Scrn (NEGATIVE) Ur Amphetamine Screen (NEGATIVE) U Methamphetamines Scrn (NEGATIVE) Urine MDMA Screen (NEGATIVE) U Benzodiazepines Scrn (NEGATIVE) U Cocaine Metab Screen (NEGATIVE) U Marijuana (THC) Screen (NEGATIVE) Ethyl Alcohol mg/dL [facility]GO Results - Last 24 hrs: Microbiology 06/18/17 02:15 Gram Stain - Final Endotracheal Med Orders - Current: Current Medications Acetaminophen (Tylenol) 650 mg RECTAL Q4H PRN PRN Reason: Mild pain/fever Albuterol (Proventil Neb Soln) 2.5 mg NEB Q4H PRN PRN Reason: Shortness Of Breath/wheezing Albuterol/Ipratropium (Duoneb 3.0-0.5 Mg/3 Ml) 3 ml NEB QIDRT AUTUMN Enoxaparin Sodium (Lovenox) 40 mg SUBCUT BEDTIME AUTUMN Heparin Sodium (Porcine) (Heparin Lock Flush 100 Units/Ml) 0 units FLUSH ASDIRECTED PRN PRN Reason: central line Hydromorphone HCl (Dilaudid) 0.5 mg IVPUSH Q2H PRN PRN Reason: Pain Lactated Ringer's (Ringers, Lactated) 1,000 mls @ 125 mls/hr IV ASDIRECTED AUTUMN Last Admin: 06/18/17 04:26 Dose: 125 mls/hr Levofloxacin/Dextrose 750 mg/ (Premix) 150 mls @ 100 mls/hr IV Q24H AUTUMN Last Admin: 06/18/17 02:37 Dose: 100 mls/hr Propofol (Diprivan 100 Ml) 100 mls @ 2.16 mls/hr IV TITRATE AUTUMN; Protocol Last Titration: 06/18/17 07:16 Dose: 5.09 mcg/kg/min, 2.2 mls/hr Norepinephrine Bitartrate 4 mg (/ Dextrose/Water) 250 mls @ 7.5 mls/hr IV TITRATE AUTUMN; Protocol Last Titration: 06/18/17 08:30 Dose: 5 mcg/min, 18.75 mls/hr Meropenem 1 gm/ Sodium (Chloride) 100 mls @ 200 mls/hr IV Q8H [facility] Vancomycin HCl 1.1 gm/ Sodium (Chloride) 250 mls @ 167 mls/hr IV Q12H AUTUMN Heparin Sodium (Porcine) 5,000 (units/ Sodium Chloride) 501 mls @ 5 mls/hr IV ASDIRECTED AUTUMN Last Admin: 06/18/17 09:56 Dose: 5 mls/hr Magnesium Sulfate 2 gm/ Premix 50 mls @ 25 mls/hr IV ONETIME ONE Stop: 06/18/17 13:29 Lactated Ringer's (Ringers, Lactated) 1,000 mls @ 999 mls/hr IV ONETIME ONE Stop: 06/18/17 12:00 Last Admin: 06/18/17 10:52 Dose: 999 mls/hr Ondansetron HCl (Zofran) 4 mg IV Q4H PRN PRN Reason: Nausea/Vomiting Pantoprazole Sodium (Protonix Iv) 40 mg IV Q12H [facility] Last Admin: 06/18/17 02:39 Dose: 40 mg Sodium Chloride (Saline Flush) 10 ml FLUSH ASDIRECTED PRN PRN Reason: Keep Vein Open Discontinued Medications Albuterol/Ipratropium (Duoneb 3.0-0.5 Mg/3 Ml) 3 ml NEB QID [facility] Last Admin: 06/18/17 05:22 Dose: 3 ml Enoxaparin Sodium (Lovenox) 40 mg SUBCUT DAILY [facility] Last Admin: 06/18/17 03:53 Dose: 40 mg Etomidate (Amidate) 40 mg IV ONETIME ONE Stop: 06/18/17 00:31 Last Admin: 06/18/17 00:40 Dose: 20 mg Heparin Sodium (Porcine) (Heparin Lock Flush 100 Units/Ml) Confirm Administered Dose 1,500 units .ROUTE .STK-MED ONE Stop: 06/18/17 09:22 Last Admin: 06/18/17 10:24 Dose: Not Given Heparin Sodium (Porcine) (Heparin Lock Flush 100 Units/Ml) 300 units FLUSH ASDIRECTED PRN PRN Reason: central line Last Admin: 06/18/17 10:15 Dose: 300 units Propofol (Diprivan 100 Ml) Confirm Administered Dose 100 mls @ as directed .ROUTE .K-MED ONE Stop: 06/18/17 01:09 Lactated Ringer's (Ringers, Lactated) 1,000 mls @ 500 mls/hr IV ASDIRECTED [facility] Stop: 06/18/17 05:16 Last Admin: 06/18/17 02:00 Dose: 500 mls/hr Meropenem 1 gm/ Sodium (Chloride) 100 mls @ 200 mls/hr IV Q8H [facility] Last Admin: 06/18/17 04:27 Dose: 200 mls/hr Dextrose/Water (Dextrose 5% In Water) Confirm Administered Dose 250 mls @ as directed .ROUTE .STK-MED ONE Stop: 06/18/17 04:42 Last Admin: 06/18/17 05:21 Dose: Not Given Vancomycin HCl 1.5 gm/ Sodium (Chloride) 250 mls @ 167 mls/hr IV ONETIME ONE Stop: 06/18/17 09:29 Last Admin: 06/18/17 07:47 Dose: 167 mls/hr Lactated Ringer's (Ringers, Lactated) 500 mls @ 500 mls/hr IV .BOLUS ONE Stop: 06/18/17 09:59 Last Admin: 06/18/17 08:57 Dose: 500 mls/hr Lidocaine HCl (Xylocaine-Mpf 1%) 5 ml INJECT ONETIME ONE Stop: 06/18/17 10:31 Last Admin: 06/18/17 10:52 Dose: 5 ml Midazolam HCl (Versed 1 Mg/Ml) 5 mg IVPUSH ONETIME ONE Stop: 06/18/17 01:05 Midazolam HCl (Versed 1 Mg/Ml) Confirm Administered Dose 5 mg .ROUTE .STK-MED ONE Stop: 06/18/17 01:07 Norepinephrine Bitartrate (Levophed) Confirm Administered Dose 4 mg .ROUTE .STK- MED ONE Stop: 06/18/17 04:41 Last Admin: 06/18/17 05:20 Dose: Not Given Succinylcholine Chloride (Quelicin) 75 mg IV ONETIME ONE Stop: 06/18/17 00:31 Last Admin: 06/18/17 00:40 Dose: 75 mg Succinylcholine Chloride (Quelicin) Confirm Administered Dose 200 mg .ROUTE .STK -MED ONE Stop: 06/18/17 00:31 Last Admin: 06/18/17 00:53 Dose: Not Given Vancomycin HCl (Vancomycin) 1 gm IV .PHARMACY TO DOSE AUTUMN - Exam Quality Assessment: Reports: Supplemental Oxygen (Ventilator), Central Line/PICC , Urine Catheter, DVT Prophylaxis General: Reports: Sedated Lungs: Reports: Decreased Breath Sounds. Denies: Rales, Rhonchi, Rub, Wheezing Cardiovascular: Reports: Regular Rate, Regular Rhythm, No Murmurs GI/Abdominal Exam: Soft, Non-Tender, No Organomegaly, Tender Extremities: Non-Tender, No Pedal Edema Skin: Reports: Warm, Dry, Intact
[2017-06-18] MEDS ORDERED: Lactated Ringers 1,000 ML IV ONE (11:00)
[2017-06-18] MEDS ORDERED: Magnesium Sulfate/Water 2 GM in Premix Bag 1 BAG IV ONE (11:30)
[2017-06-18] MEDS ORDERED: Vancomycin 1.1 GM in Sodium Chloride 0.9% 250 ML IV SCH (20:00)
--- NOTE | 2017-06-19 09:41 | CR ---
Chest 1V Frontal INDICATION: L SC central line placement COMPARISON: Exam same day at 0855 hours. FINDINGS: AP portable chest. Left subclavian central line in good position in the SVC. No pneumothorax. Linear infiltrate or atelectasis right lung base. Postoperative changes in the cervi kurt and thoracic spine and left shoulder.
--- NOTE | 2017-06-19 09:45 | CR ---
Chest 1V Frontal INDICATION: Respiratory failure, intubation COMPARISON: Exam same day at 0046 hours FINDINGS: AP portable chest. ET tube mid trachea unchanged. Mild bilateral vascular congestion, new. Heart size normal.
--- NOTE | 2017-06-19 10:32 | CR ---
Chest 1V Frontal INDICATION: post intubation COMPARISON: Exam same day at 0013 hours FINDINGS: AP portable chest. ET tube lower trachea just above the argenis. Infiltrate left lung base again noted. Heart size normal.
--- NOTE | 2017-06-19 10:40 | CR ---
Chest 1V Frontal INDICATION: mental status change COMPARISON: None FINDINGS: AP portable chest. Heart size normal. Infiltrate in the left lung. Right lung clear. No pleural effusion. Fusion changes in the cervical and thoracic spine. Left shoulder arthroplasty.
== END 2017-06-18 12:15 | DRG 853 ==
LOC: JP.ED 23:52 → JP.ICU 06-18 01:52
PROVIDERS: ADMIT Hospitalist; ATTEND Hospitalist
PROC: 5A1935Z Respiratory Ventilation, Less than 24 Consecutive Hours (ICD-10-PCS; principal; 2017-06-18)
PROC: 0BH17EZ Insertion of Endotracheal Airway into Trachea, Via Natural or Artificial Opening (ICD-10-PCS; 2017-06-18)
PROC: 03H Upper Arteries, Insertion (ICD-10-PCS; 2017-06-18)
PROC: 05H633Z Insertion of Infusion Device into Left Subclavian Vein, Percutaneous Approach (ICD-10-PCS; 2017-06-18)
DX: A41.9 Sepsis, unspecified organism (principal); J96.22 Acute and chronic respiratory failure with hypercapnia; R65.21 Severe sepsis with septic shock; J44.1 Chronic obstructive pulmonary disease with (acute) exacerbation; F17.210 Nicotine dependence, cigarettes, uncomplicated; F10.10 Alcohol abuse, uncomplicated; Y90.6 Blood alcohol level of 120-199 mg/100 ml; Z98.1 Arthrodesis status; I95.9 Hypotension, unspecified; Z88.0 Allergy status to penicillin
CPT/HCPCS: 36600; 70450; 71045; 71045-26; 80048; 80053; 80305; 81001; 82140; 82803; 83605; 83735; 84484; 85025; 87040; 87070; 87086; 87205; 94002; 94640; 96374; 96375; 99285-25; C9113; G0480; J0330; J1170; J1642; J1644; J1650; J1956; J2185; J3370; J3475; J3490; J7030; J7040; J7050; J7060; J7120; J7620

== ENCOUNTER 2017-07-25 07:05 | Emergency (ER) | payer OTHER ==
[2017-07-25] MEDS ORDERED: fentaNYL 100 MCG/2 ML SDV IVPUSH ONE (07:40)
--- NOTE | 2017-07-25 07:47 | EDM.PDOC ---
ED HPI GENERAL MEDICAL PROBLEM - General Chief Complaint: Neck Problem Stated Complaint: NECK PAIN Time Seen by Provider: 07/25/17 07:36 Source of Information: Reports: Patient, EMS, RN Notes Reviewed History Limitations: Reports: No Limitations - History of Present Illness INITIAL COMMENTS - FREE TEXT/NARRATIVE: 66-year-old gentleman presents to the emergency department via EMS services for acute onset of neck pain, he is wheelchair bound has a history of chronic pain as well as extensive back surgery due to deteriorating disc disease. He fell out of his wheelchair earlier this morning landed on his head experienced sudden onset of neck pain. He states he can move all of his extremities without difficulty pain is greatest right below his head. Neck Pain Score (Numeric/FACES): 8 - Related Data Allergies Allergy/AdvReac Type Severity Reaction Status Date / Time Penicillins Allergy Other Verified 07/25/17 07:19 Home Meds: Home Meds Acetaminophen 650 mg PO BID PRN 06/18/17 [History] Albuterol [Proventil Neb Soln] 2.5 mg NEB Q4H PRN neb 06/18/17 [Rx] Albuterol/Ipratropium [DuoNeb 3.0-0.5 MG/3 ML] 3 ml NEB QIDRT neb 06/18/17 [Rx] Ascorbic Acid 500 mg PO BID 06/18/17 [History] Baclofen 10 mg PO BID 06/18/17 [History] Ferrous Sulfate 325 mg PO BID 06/18/17 [History] Folic Acid 1 mg PO DAILY 06/18/17 [History] Gabapentin [Neurontin] 600 mg PO BID 06/18/17 [History] Lactobacillus Acidophilus [Digestive Probiotic] 1 each PO BID 06/18/17 [History] Melatonin/Pyridoxine HCl (B6) [Melatonin 3 mg Tablet] 3 mg PO BEDTIME 06/18/17 [ History] Pantoprazole Sodium [Protonix] 40 mg PO BIDAC 06/18/17 [History] QUEtiapine Fumarate [Quetiapine Fumarate] 25 mg PO BEDTIME 06/18/17 [History] Simvastatin [Zocor] 80 mg PO BEDTIME 06/18/17 [History] Thiamine Mononitrate [Vitamin B-1] 100 mg PO DAILY 06/18/17 [History] Past Medical History HEENT History: Reports: Other (See Below) Other HEENT History: tinitis Cardiovascular History: Reports: High Cholesterol Respiratory History: Reports: COPD, Pneumonia, Recurrent, Other (See Below) Other Respiratory History: hx acute resp failure on vent Gastrointestinal History: Reports: GERD, GI Bleed, Other (See Below) Other Gastrointestinal History: History of C-Diff 05/22. recent duodenal ulcer with hemmorhage oversew of duodenal ulcer Musculoskeletal History: Reports: Back Pain, Chronic, Osteoarthritis, Other ( See Below) Other Musculoskeletal History: incomplete tetralgia. spasticity Neurological History: Reports: Neuropathy, Peripheral, Other (See Below) Other Neuro History: tetraplegia s/p C 3-7 laminectomy. C 2-7 PSIF 10/30. lumbar spondylosis fusion L 3-4 laminectomy -. hx thoracic spine surg with Eriwn rods with hooks Psychiatric History: Reports: Addiction, Bipolar, Other (See Below) Other Psychiatric History: Chronic alchololic Hematologic History: Reports: Blood Transfusion(s), Other (See Below) Other Hematologic History: Recent 2017 GI Bleed with abdominal surgery Immunologic History: Reports: Other (See Below) Other Immunologic History: Unable to obtain Dermatologic History: Reports: Psoriasis - Infectious Disease History Infectious Disease History: Reports: Chicken Pox - Past Surgical History GI Surgical History: Reports: EGD, Other (See Below) Other GI Surgeries/Procedures: Recent abdominal surgery oversew of duodenal ulcer 05/20. sp arteriogm with coil embolization of gastroduodenal artery Male Surgical History: Reports: Circumcision Neurological Surgical History: Reports: C-Spine, Lumbar Spine, Spinal Fusion, Thoracic Spine, Other (See Below) Other Neurological Surgeries/Procedures: Recent 2017 C-2 through C-7 fusion Musculoskeletal Surgical History: Reports: Other (See Below) Other Musculoskeletal Surgeries/Procedures:: bilateral knee surgeries Social & Family History - Family History Family Medical History: Unobtainable - Tobacco Use Smoking Status *Q: Current Every Day Smoker Years of Tobacco use: 40 Packs/Tins Daily: 0.5 - Caffeine Use Caffeine Use: Reports: Coffee - Recreational Drug Use Recreational Drug Use: No ED ROS GENERAL - Review of Systems Review Of Systems: See Below Constitutional: Reports: No Symptoms HEENT: Reports: No Symptoms Respiratory: Reports: No Symptoms Cardiovascular: Reports: No Symptoms GI/Abdominal: Reports: No Symptoms : Reports: No Symptoms Musculoskeletal: Reports: Neck Pain, Shoulder Pain Skin: Reports: No Symptoms Neurological: Reports: No Symptoms ED EXAM, UPPER BACK/NECK PAIN - Physical Exam Exam: See Below Exam Limited By: No Limitations General Appearance: Alert, Mild Distress Eye Exam: Bilateral Eye: Normal Inspection Ears Exam: Normal External Exam, Normal Canal, Hearing Grossly Normal, Normal TMs Nose Exam: Normal Inspection, Normal Mucousa, No Blood Throat/Mouth Exam: Normal Inspection, Normal Lips, Normal Teeth, Normal Gums, Normal Oropharynx, Normal Voice, No Airway Compromise Head Exam: Atraumatic, Normocephalic Neck Exam: Tender Lateral, Tender Midline, Other (C-collar in place) Nexus Criteria: Posterior, Midline Cervical Tenderness. No: Evidence of Intoxication, Altered Level of Consciousness, Focal Neurological Deficit, Painful Distraction Injuries Cardiovascular/Respiratory: Regular Rate, Rhythm, No M/R/G GI/Abdominal: Soft, Non-Tender (Thank you) Course - Vital Signs Last Recorded V/S: Last Vital Signs Temp 95.4 F 07/25/17 08:29 Pulse 89 07/25/17 10:30 Resp 16 07/25/17 10:30 BP 123/67 07/25/17 10:30 Pulse Ox 93 L 07/25/17 10:30 - Orders/Labs/Meds Meds: Medications Discontinued Medications Generic Name Dose Route Start Last Admin Trade Name Cherri PRN Reason Stop Dose Admin Fentanyl 100 mcg 07/25/17 07:40 07/25/17 07:55 Sublimaze IVPUSH 07/25/17 07:41 100 mcg ONETIME ONE Administration Hydromorphone HCl 1 mg 07/25/17 08:38 07/25/17 08:43 Dilaudid IVPUSH 07/25/17 08:39 1 mg ONETIME ONE Administration Hydromorphone HCl 1 mg 07/25/17 10:36 07/25/17 10:47 Dilaudid IVPUSH 07/25/17 10:37 1 mg ONETIME ONE Administration Lorazepam 1 mg 07/25/17 10:37 07/25/17 10:52 Ativan IVPUSH 07/25/17 10:38 1 mg ONETIME ONE Administration Departure - Departure Time of Disposition: 11:13 Disposition: DC/Tfer to Acute Hospital 02 Condition: Fair Clinical Impression: C1 cervical fracture Qualifiers: Encounter type: initial encounter Fracture type: closed Fracture morphology: other fracture Fracture alignment: nondisplaced Qualified Code(s): S12.091A - Other nondisplaced fracture of first cervical vertebra, initial encounter for closed fracture Dens fracture Qualifiers: Encounter type: initial encounter Fracture type: closed Qualified Code(s): S12.100A - Unspecified displaced fracture of second cervical vertebra, initial encounter for closed fracture - Discharge Information Referrals: PCP,None [Primary Care Provider] - Forms: ED Department Discharge - Assessment/Plan Plan: Assessment Acuity = acute Site and laterality = fracture of the dens nondisplaced, anterior arch fracture C1 nondisplaced Etiology = secondary to a fall Manifestations = none Location of injury = Home Lab values = none Plan Called and discussed case with Dr. Ferro neurosurgery at [facility] kindly accepted the patient in transport he'll be transported via EMS ground he has received 2 mg Dilaudid, 100 g of fentanyl and 1 mg Ativan for pain control This note was dictated using [employer] voice recognition software please call with any questions on syntax or grammar.
--- NOTE | 2017-07-25 08:31 | CT ---
CT Head wo Cont CLINICAL HISTORY: Fall, pain COMPARISON: 06/18/2017 TECHNIQUE: Transverse scans were obtained from the base of the skull through the vertex without IV co ntrast on a multislice, multidetector CT scanner. Auto dosage reduction and iterative reconstruction techniques employed. FINDINGS: No focal abnormal parenchymal density is identified. There is no mass effect, hemorrhage, o r extraaxial collection. The basal cisterns and sulci over the convexities are prominent. The ventric les are normal for age. There is some ethmoid sinusitis. IMPRESSION: Mild age-related atrophy. No focal lesion or hemorrhage The ethmoid sinusitis has improved since prior study
[2017-07-25] MEDS ORDERED: HYDROmorphone 1 MG/ML Syringe IVPUSH ONE ×2 (08:38→10:36)
--- NOTE | 2017-07-25 08:52 | CT ---
CT Cervical Spine wo Cont CLINICAL HISTORY: Neck pain, fall TECHNIQUE: Multiple CT sections were taken through the cervical spine in the transaxial projection. C oronal and sagittal views were reconstructed. Images were viewed at bone as well as soft tissue windo ws on a digital workstation. Auto dosage reduction and iterative reconstruction techniques employed. FINDINGS: There is a transverse fracture through the base of the dens. There is some minimal posterio r angulation of the dens with some encroachment on the anterior spinal canal. There is also a fractur e through the anterior arch of the C1. There are also fractures in the posterior arch of C1 through t he both pedicles. There is no significant displacement. Patient has extensive posterior cervical fixation with transpedicular screws and rods from C2 through C7. There are bilateral laminectomies from C3 through C7. There is a a 5 mm anterolisthesis of C7 on T1. Patient also has thoracic fixation with Carlos rods from T3 downward. There is a fusion of th e vertebral bodies at C4-5. There is a minimal retrolisthesis of the C4 and 5 vertebral bodies. There is severe diffuse degenerative disc disease. There is central disc protrusion at the C3-4. There is bilateral neural foraminal encroachment. There is moderate right-sided spondylosis at C4-5 as well as significant bony foraminal encroachment. There is disc osteophyte complex at the C5-6 and C6-7 with bilateral neural foraminal encroachment. IMPRESSION: Fracture through the base of the dens with slight posterior angulation Fractures through the anterior arch and both pedicles of C1 without significant displacement Extensive posterior surgical fixation from C2 through C7 with the a lateral laminectomies from C3 thr ough C7 Minimal retrolisthesis of the C4 and 5 vertebral bodies which are fused. This is likely chronic. Prio r images would be helpful Diffuse degenerative disc disease with spondylosis and uncovertebral joint spurring causing multiple level bilateral neural foraminal encroachment Emergency room was notified at the time of this dictation at 08:35
[2017-07-25] MEDS ORDERED: LORazepam 2 MG/ML SDV IVPUSH ONE (10:37)
== END 2017-07-25 12:29 ==
LOC: JP.ED 07:05
DX: S12.091A Other nondisplaced fracture of first cervical vertebra, initial encounter for closed fracture (principal); S12.100A Unspecified displaced fracture of second cervical vertebra, initial encounter for closed fracture; F17.210 Nicotine dependence, cigarettes, uncomplicated; E78.00 Pure hypercholesterolemia, unspecified; Z88.0 Allergy status to penicillin; Z79.899 Other long term (current) drug therapy; W05.0XXA Fall from non-moving wheelchair, initial encounter
CPT/HCPCS: 70450; 72125; 96374; 96375; 96376; 99284; J1170; J2060; J3010